=== PATIENT | male | born 1950 | race Caucasian/White ===

== ENCOUNTER 2016-10-07 19:50 | Inpatient (IN) | payer MEDICARE, OTHER ==
--- NOTE | ~2016-10-07 | HP ---
History And Physical [facility] [address] [place]. [address] NAME: LEXII CONTRERAS JR : 54 STATUS : ADM IN PAT#: [id number] AGE: 66 ADM/REG DATE : 10/07/16 MR#: [id number] REPORT SERV DATE: 10/08/16 DICTATED BY: MAYE SESAY DATE: 10/07/16 REPORT STATUS : Draft TRANSCRIBED BY: MODAlberto DATE: 10/07/16 DATE OF ADMISSION: 10/07/2016 POINT OF ENTRY: [facility] Emergency Department. PRIMARY CARE PHYSICIAN: Unknown at this time. PRIMARY UROLOGIST: Etta Borden M.D. CHIEF COMPLAINT: Ba catheter malfunction. HISTORY OF PRESENT ILLNESS: Mr. Contreras is a 66-year-old gentleman with history of organic brain injury who is a long-term resident of [place] as well as a history of chronic urinary retention, requiring long-term Ba catheter placement, who was brought to emergency department today by his caregivers for reports of suspicion of Ba catheter malfunction. His caregivers are at bedside, state that he had about 500 or 600 mL in his urine bag early this morning; however, when they showered him this evening his bag was empty and upon confirmation with other caregivers, it was noted that he had only drained approximately 100 mL during the day concerning for Ba catheter malfunction. Caregivers also state that he was not eating very well today which is also very unusual for him, but otherwise they deny any fevers, night sweats, chills, or any other obvious abnormality as patient is unable to provide any history. Initial evaluation in the emergency department for a white count that is within normal limits. His Ba catheter was changed out. It drained approximately 500 to 600 mL immediately. A very turbid-appearing urine with sediment. His urinalysis is positive for urinary tract infection. Other laboratory evaluation shows acute kidney injury with a creatinine of 1.6 as well as hyperkalemia with a potassium of 5.8. He was placed on IV fluids, antibiotics, and admitted to the Hospitalist Service. COMPREHENSIVE REVIEW OF SYSTEMS: Otherwise negative unless listed in history of present illness. PAST MEDICAL HISTORY: 1. Organic brain injury. 2. Atrial fibrillation, not on anticoagulation. 3. Hypertension. 4. Hypothyroidism. 5. Chronic urinary retention with chronic indwelling Ba catheter. 6. Recurrent urinary tract infection. 7. BPH. 8. History of chronic systolic congestive heart failure; however, last known ejection fraction was within normal limits. History And Physical [address] [address] NAME: LEXII CONTRERAS JR : 54 STATUS : ADM IN [facility]#: [id number] AGE: 66 ADM/REG DATE : 10/07/16 MR#: [id number] REPORT SERV DATE: 10/08/16 DICTATED BY: MAYE SESAY DATE: 10/07/16 REPORT STATUS : Draft TRANSCRIBED BY: PAOLA DATE: 10/07/16 SURGICAL HISTORY: Unknown. ALLERGIES: NO KNOWN DRUG ALLERGIES. HOME MEDICATIONS: 1. Abilify 5 mg at bedtime. 2. Vitamin C 500 mg daily. 3. Aspirin 81 mg daily. 4. Calcitonin 1 spray nasal daily. 5. Calcium vitamin D 600 mg b.i.d. 6. Calmoseptine topical ointment. 7. Sinemet 2 tabs t.i.d. 8. Cranberry extract 500 mg daily. 9. Vitamin B12 1000 mcg intramuscular monthly. 10.Digoxin 0.0625 mg daily. 11.Docusate 100 mg daily. 12.Finasteride 5 mg daily. 13.Folic acid 1000 mcg daily. 14.Lamictal 300 mg daily. 15.Lamictal 250 mg at bedtime. 16.Levothyroxine 50 mcg daily. 17.Metoprolol 6.25 mg b.i.d. 18.MiraLAX one packet daily. 19.Pravastatin 10 mg daily. 20.Hydrocerin lotion topical. 21.Metronidazole topical gel. 22.Selenium sulfide topical. SOCIAL HISTORY: No tobacco, alcohol, or illicits. Long-term resident of [facility]. Caregivers are at bedside. FAMILY HISTORY: Unknown. LABS AND IMAGIN. White count 8.9, hemoglobin 16.0, hematocrit 48.7, platelets a 147. 2. Sodium is 139, potassium 5.8, chloride 105, carbon dioxide 31, BUN 34, creatinine 1.59, glucose is 115, calcium is 9.4, protein 6.7, albumin is 3.8, bilirubin is 0.6, ALT is 8, AST 12, alkaline phosphatase is 74. 3. Urinalysis: Specific gravity is 1.019, turbid with trace ketones with large leukocyte esterase, positive nitrites with greater than 182 white blood cells per high field with 2 epithelial cells and many bacteria. 4. Chest x-ray per my review shows no acute cardiopulmonary abnormality. 5. EKG per my review, initially showed atrial fibrillation with RVR with heart rate of 110. On recheck, it is now in the 80s. No evidence of any acute ischemia or infarction or T-wave changes. PHYSICAL EXAMINATION: History And Physical [address] [place]. [address] NAME: LEXII CONTRERAS JR : 54 STATUS : ADM IN PAT#: [id number] AGE: 66 ADM/REG DATE : 10/07/16 MR#: [id number] REPORT SERV DATE: 10/08/16 DICTATED BY: MAYE SESAY DATE: 10/07/16 REPORT STATUS : Draft TRANSCRIBED BY: PAOLA DATE: 10/07/16 VITAL SIGNS: Temperature is 97.6 degrees Fahrenheit, pulse is 113, respirations 12, saturating 96% on room air, blood pressure 99/76. On recheck, temperature is now 98.1 degrees Fahrenheit, blood pressure 115/64, pulse of 85. GENERAL: Patient is awake, alert, in no acute distress. Caregivers are at bedside. HEENT: Atraumatic and normocephalic. Moist mucous membranes. Pupils are equal, round, reactive to light and accommodation. Extraocular movements intact. No scleral icterus. NECK: No jugular venous distention. No carotid bruits. CARDIAC: Irregularly irregular rate and rhythm. No murmurs, rubs, or gallops. Normal S1, S2. LUNGS: Clear to auscultation bilaterally. No wheezes, rhonchi, or rales. ABDOMEN: Soft, nontender, nondistended. Good bowel sounds. No rebound, guarding, or rigidity. EXTREMITIES: Warm and well-perfused. No cyanosis, clubbing, or edema. : Ba catheter is in place that is draining a turbid-appearing urine. SKIN: Warm and dry. PSYCH: Unable to assess. NEURO: Patient is awake and alert, will move all extremities well. Cranial nerves are grossly intact. Otherwise unremarkable neurologic exam. ASSESSMENT AND PLAN: Mr. Contreras is a 66-year-old gentleman with a chronic indwelling Ba catheter who is brought to the emergency department for Ba catheter malfunction, found to have evidence of urinary tract infection as well as acute kidney injury. PROBLEM LIST: 1. Ba catheter malfunction. 2. Acute kidney injury, likely obstructive uropathy. 3. Urinary tract infection. 4. Hyperkalemia. 5. History of atrial fibrillation. 6. Organic brain injury. PLAN: 1. Urinary tract infection. Follow up urine cultures. Patient has grown multitude of organisms in the past including MRSA, Proteus, Citrobacter, and Enterococcus faecalis. We will initially cover with vancomycin and cefepime and narrow once cultures result. 2. Acute kidney injury, obstructive uropathy. We will place patient on IV fluid hydration. Ab catheter has already been replaced and is now draining appropriately. Checking urine lytes as well as renal ultrasound. 3. Hyperkalemia. No evidence of EKG changes at this time. Continue cardiac telemetry monitoring. Continue IV fluid hydration. We will give calcium gluconate as well as one time dose of Kayexalate to bring it down. 4. Atrial fibrillation. Patient is currently well rate controlled. Continue the patient's home metoprolol and digoxin. He is not on anticoagulation. 5. Ba catheter malfunction. This has been addressed in the ER. Ba catheter has been changed out. 6. DVT prophylaxis, Lovenox subcutaneously. History And Physical [address] [address] NAME: LEXII CONTRERAS JR : 54 STATUS : ADM IN [facility]#: [id number] AGE: 66 ADM/REG DATE : 10/07/16 MR#: [id number] REPORT SERV DATE: 10/08/16 DICTATED BY: MAYE SESAY DATE: 10/07/16 REPORT STATUS : Draft TRANSCRIBED BY: MODL DATE: 10/07/16 CODE STATUS: Patient wishes to be full code. NIYA/ADOREL Maye Sesay MD / [id number] CC: Deny Leonard M.D.
--- NOTE | ~2016-10-07 | DS ---
Discharge Summary [facility] [address] [place]. [address] NAME: LEXII GALLEGOS JR : 54 STATUS : DIS IN PAT#: [id number] AGE: 66 ADM/REG DATE : 10/07/16 MR#: [id number] REPORT SERV DATE: 10/10/16 DICTATED BY: LASHONDA SANDOVAL DATE: 10/09/16 REPORT STATUS : Draft TRANSCRIBED BY: MODL DATE: 10/09/16 ADMISSION DATE: 10/07/2016 DISCHARGE DATE: 10/09/2016 DISCHARGE DIAGNOSES: 1. Acute kidney injury. 2. Hyperkalemia. 3. Obstructive chronic indwelling Ba catheter. 4. Chronic urinary retention. 5. Urinary colonization. 6. Lifelong mental retardation. 7. Transient metabolic encephalopathy. 8. Seizure disorder. 9. Chronic atrial fibrillation, not on anticoagulation. 10.Hypothyroidism. 11.Chronic macrocytosis. 12.Chronic thrombocytopenia. 13.History of colonic polyps. HISTORY: This patient reportedly was noticed early in life to have severe mental retardation. His sister, Renate, told me in phone conversation that it was confirmed by first or second grade. He has lived in a penitentiary since about age 23. Reportedly there is a couple other siblings who also have significant cognitive problems. The patient has been residing at [facility]. The staff at [facility] reportedly noticed he had decreased urine in his Ba catheter and that he had decreased appetite which is unusual for him and because of these abnormalities, sent him to the emergency room at [facility] where he was noted to have a potassium elevation of 5.8 and a serum creatinine of 1.59. His previous baseline was 1.2 to 1.3. He was referred to our team for inpatient care. His old Ba catheter was taken out. A new one was placed. He had good urinary output. He had one dose of Kayexalate 30 g p.o. and his potassium came down to 5.1 and 4.4. With fluids, his creatinine came down to 1.2. The patient is chronically on digoxin. His level was checked, it was 0.2. Renal ultrasound was performed showing early cortical atrophy and thickening. No significant obstruction. Chest x-ray in the emergency room showed low lung volumes related to his kyphosis and head tilted forward posture. Initially, he was placed on IV antibiotics, cefepime. His white count has not been elevated through this time here in the hospital. His procalcitonin was undetectable on two different occasions. The patient is growing a gram-negative bacilli, and his urine blood cultures were without growth. It is likely that this is a colonization rather than an active infection given the absence of fever and his rapid improvement with just changing the catheter. Antibiotics have been discontinued. He is eating well and the caregivers who know him from [facility] say he is back at his Discharge Summary [address] [address] NAME: LEXII GALLEGOS : 54 STATUS : DIS IN PAT#: [id number] AGE: 66 ADM/REG DATE : 10/07/16 MR#: [id number] REPORT SERV DATE: 10/10/16 DICTATED BY: LASHONDA SANDOVAL DATE: 10/09/16 REPORT STATUS : Draft TRANSCRIBED BY: PAOLA DATE: 10/09/16 usual baseline both on 10/08 and 10/09/2016. We are releasing him to go back to [facility]. DISCHARGE MEDICATIONS: Abilify 5 mg at bedtime; vitamin C 500 mg daily; aspirin 81 mg daily; Miacalcin nasal spray alternating nostrils daily; Sinemet 25/100 he takes at 7 a.m., 11 a.m., and 4 p.m.; vitamin B12 of 1000 mcg IM every 30 days, he usually gets his on the ; Caltrate 600 mg b.i.d.; digoxin half of a 0.125 mg tablet every day; Colace 100 mg at bedtime; Proscar 5 mg daily; folic acid he takes daily; Lamictal 300 mg in the morning and 250 mg in the evening; Synthroid 50 mcg daily (his TSH was normal at 3.66); metoprolol 6.25 mg b.i.d., hold if systolic less than 105 or heart rate less than 60; MiraLAX 1 packet daily p.r.n. constipation; Pravachol 10 mg every evening; Tylenol 650 q.6 hours p.r.n. pain or fever; cranberry extract daily; he uses some topical lotion as well as prescription metronidazole gel to his eyebrows every evening and selenium sulfide shampoo Sunday, Sunday, Sunday, and Sunday; and Calmoseptine ointment to his buttocks t.i.d. p.r.n. need for skin barrier. He is to resume his mechanical soft diet, chopped meats with gravy, thin liquids. I spent 37 minutes today with the patient and with discharge plans. DICTATED BY: Deny Leonard/PAOLA Lashonda Sandoval M.D. / [id number] CC: Deny Leonard M.D. Alan Shikoh, M.D. MELI THAKUR
[~2016-10-07 19:50] MED LIST: ABILIFY; ABILIFY10 PO; ABILIFY15 PO; ABILIFY5 PO; ASAB PO; ASAEC PO; ASPIRIN; BAZA TOP; CALMOSEPTINE O2.5 OZ TOP; CALMOSEPTINE T; CALTRA600D PO; CARD120 PO; CEFT5 PO; CIP5 PO; CITRACAL PO; COLACE; COREG3 PO; COZ25 PO; CRANBERRY500 MG PO; CUTIVATE0.05 % TOP; DESONIDE0.05 % EX; DIGITEK0.125 MG PO; DOXYCYCLINE; DSS PO; ELIMITE CREAM 560 GM TOP; ENSURE PLUS PO; EXTINA2 % TOP; FLUOCINONIDE0.05 % T; FOLIC ACID; FOLIC PO; FOSAMAX; FOSAMAX35 MG PO; HALF81 PO; JOHNSON'S BABY OIL OT; KURIC2 % TOP; LAMICTAL; LAMICTAL10 PO; LAMICTAL150 MG PO; LEVAQUIN5T PO; LEVAQUIN750 MG PO; LEVOTHYROXIN50 MCG PO; LOP25 PO; LOTRIMIN AF21 EX; LOTRIMIN AF21 T; LOTRIMIN AF21 TOP; LUBRIDERM LOTION4 O2 EX; MAGNESIUM CITRATE PO; METROGEL1 % TOP; MIRALAX; MIRALAXPKT PO; OS500+D PO; PRAV10 PO; PROSCAR5 PO; PROTONIX PO; SELENIUM SULFIDE; SELENIUM SULFIDE EX; SELENIUM SULFIDE T; SELSUN BLUE3 % TOP; SIN25 PO; SYN.025B PO; SYN.05 PO; VERAPAMIL; VIB100 PO; VITC500 PO; [UNRECOGNIZED DRUG - OTHER]; [UNRECOGNIZED DRUG - OTHER]; [UNRECOGNIZED DRUG - OTHER] OT; [UNRECOGNIZED DRUG - OTHER] TOP; [UNRECOGNIZED DRUG - OTHER] TOP
[2016-10-07] MEDS ORDERED: LOP25 PO (21:30)
[2016-10-07] MEDS ORDERED: CRANBERRY500 MG PO (21:31)
[2016-10-07] MEDS ORDERED: B121000P IM (21:32)
[2016-10-07] MEDS ORDERED: CALTRA600D PO (21:34)
[2016-10-07] MEDS ORDERED: VITC500 PO (21:35)
[2016-10-07] MEDS ORDERED: DSS PO (21:36)
[2016-10-07] MEDS ORDERED: HYDROCERIN (21:37)
[2016-10-07] MEDS ORDERED: SYN.05 PO (21:38)
[2016-10-07] MEDS ORDERED: FOLIC PO (21:38)
[2016-10-07] MEDS ORDERED: METRONIDAZOLE GEL (21:40)
[2016-10-07] MEDS ORDERED: PRAV10 PO (21:41)
[2016-10-07] MEDS ORDERED: MIRALAX POWDER1 PKT PO (21:41)
[2016-10-07] MEDS ORDERED: SELENIUM SULFIDE 2.5 (21:42)
[2016-10-07] MEDS ORDERED: SIN25 PO (21:44)
[2016-10-07] MEDS ORDERED: LAMICTAL10 PO ×2 (21:44→21:45)
[2016-10-07] MEDS ORDERED: HALF81 PO (21:45)
[2016-10-07] MEDS ORDERED: MIACALCIN NAS (21:46)
[2016-10-07] MEDS ORDERED: PROSCAR5 PO (21:47)
[2016-10-07] MEDS ORDERED: LAN125 PO (21:47)
[2016-10-07] MEDS ORDERED: ABILIFY5 PO (21:48)
[2016-10-07] MEDS ORDERED: CALMOSEPTINE O2.5 OZ TOP (21:50)
[2016-10-07 21:56] LABS: BASOPHILS 0.1 %; BASOPHILS ABSOLUTE 0.01 10/3/uL (0.0-0.16); EOSINOPHILS 0.2 %; EOSINOPHILS ABSOLUTE 0.02 10/3/uL (0.0-0.53); IMMATURE GRANULOCYTES 0.3 %; IMMATURE GRANULOCYTES ABSOLUTE 0.03 10/3/uL (0.0-0.11); LYMPHOCYTES 7.7 %; LYMPHOCYTES ABSOLUTE 0.69 10/3/uL (0.67-4.30); MEAN CORPUS HGB CONC 33.3 g/dL (32.0-36.0); MEAN CORPUSCULAR HEMOGLOB 33.7 pg (26.0-34.0); MEAN PLATELET VOLUME 11.1 fL (9.2-13.0); MONOCYTES 7.9 %; NEUTROPHILS 83.8 %; NEUTROPHILS ABSOLUTE 7.46 10/3/uL (2.02-8.40); RBC DISTRIBUTION WIDTH 13.8 % (12.0-16.0)
[2016-10-07 21:58] LABS: ER CBC TAT 0 Hrs 07 Mins; HEMATOCRIT 48.1 % (40.0-51.0); MANUAL DIFF NO %; MEAN CORPUSCULAR VOLUME 101.3 fL (80-100); PLATELET COUNT 147 10/3/uL (150-400); RED CELL COUNT 4.75 10/6/uL (4.7-6.1); WHITE BLOOD CELLS 8.9 10/3/uL (4.5-10.5)
[2016-10-07 22:10] LABS: CALCIUM, SERUM 9.4 MG/DL (8.5-10.4); CHLORIDE, SERUM 105 MMOL/L (96-112); CO2 (CARBON DIOXIDE) 31 MMOL/L (24-34); SGOT(AST) 12 U/L (5-40); SGPT(ALT) 8 U/L (5-65); SODIUM, SERUM 139 MMOL/L (135-148); TOTAL BILIRUBIN 0.6 MG/DL (0-1.2)
[2016-10-07 22:12] LABS: BUN (BLOOD UREA NITROGEN) 34 MG/DL (6-23); CREATININE 1.59 MG/DL (0.70-1.30); GFR AFRICAN AMERICAN 52 ML/MIN (>=60); GFR NON AFRICAN AMERICAN 45 ML/MIN (>=60); GLUCOSE, SERUM 115 MG/DL (60-99); POTASSIUM, SERUM 5.8 MMOL/L (3.5-5.3)
[2016-10-07 22:13] LABS: A/G RATIO 1.3 (0.7-1.9); ALBUMIN 3.8 G/DL (3.5-5.0); ALKALINE PHOSPHATASE 74 U/L (45-117); GLOBULIN 2.9 G/DL (2.5-4.1); TOTAL PROTEIN 6.7 G/DL (6.0-8.5)
[2016-10-07 22:17] LABS: ASCORBIC ACID (UR NOT ORDER) 40 (NEG); BILIRUBIN, URINE NEGATIVE (NEG); ER URINALYSIS TAT 0 Hrs 26 Mins; KETONE, URINE TRACE MG/DL (NEG); LEUKOCYTE ESTERASE(NOT OR LARGE (NEG); NITRITE (URINE) POS (NEG)
[2016-10-07 22:18] LABS: WBC (NOT ORDERED) (RFLEX) > 182 (0-5)
[2016-10-07 22:27] LABS: PROCALCITONIN <0.05 ng/mL (<0.5)
[2016-10-08 00:11] LABS: TROPONIN I 0.03 NG/ML (<0.05)
[2016-10-08 00:28] LABS: PROCALCITONIN <0.05 ng/mL (<0.5)
[2016-10-08 05:55] LABS: BASOPHILS 0.2 %; BASOPHILS ABSOLUTE 0.01 10/3/uL (0.0-0.16); EOSINOPHILS 0.4 %; EOSINOPHILS ABSOLUTE 0.02 10/3/uL (0.0-0.53); HEMOGLOBIN 14.2 g/dL (13.6-17.8); IMMATURE GRANULOCYTES 0.2 %; IMMATURE GRANULOCYTES ABSOLUTE 0.01 10/3/uL (0.0-0.11); LYMPHOCYTES 12.7 %; LYMPHOCYTES ABSOLUTE 0.68 10/3/uL (0.67-4.30); MEAN CORPUS HGB CONC 33.2 g/dL (32.0-36.0); MEAN CORPUSCULAR HEMOGLOB 33.3 pg (26.0-34.0); MEAN CORPUSCULAR VOLUME 100.2 fL (80-100); MEAN PLATELET VOLUME 11.3 fL (9.2-13.0); MONOCYTES 10.3 %; MONOCYTES ABSOLUTE 0.55 10/3/uL (0.21-1.20); NEUTROPHILS 76.2 %; NEUTROPHILS ABSOLUTE 4.09 10/3/uL (2.02-8.40); PLATELET COUNT 114 10/3/uL (150-400); RBC DISTRIBUTION WIDTH 13.8 % (12.0-16.0); RED CELL COUNT 4.27 10/6/uL (4.7-6.1); WHITE BLOOD CELLS 5.4 10/3/uL (4.5-10.5)
[2016-10-08 05:58] LABS: HEMATOCRIT 42.8 % (40.0-51.0); MANUAL DIFF NO %
[2016-10-08 06:22] LABS: ALBUMIN 3.3 G/DL (3.5-5.0); CALCIUM, SERUM 9.1 MG/DL (8.5-10.4); CHLORIDE, SERUM 108 MMOL/L (96-112); CREATININE 1.19 MG/DL (0.70-1.30); GFR AFRICAN AMERICAN 74 ML/MIN (>=60); GFR NON AFRICAN AMERICAN 64 ML/MIN (>=60); POTASSIUM, SERUM 4.4 MMOL/L (3.5-5.3); SODIUM, SERUM 139 MMOL/L (135-148)
[2016-10-08 06:23] LABS: BUN (BLOOD UREA NITROGEN) 27 MG/DL (6-23); CO2 (CARBON DIOXIDE) 25 MMOL/L (24-34); DIGOXIN 0.2 NG/ML (0.8-2.0); GLUCOSE, SERUM 87 MG/DL (60-99); PHOSPHORUS, SERUM 2.3 MG/DL (2.5-4.5)
[2016-10-09 05:15] LABS: BASOPHILS 0.7 %; BASOPHILS ABSOLUTE 0.02 10/3/uL (0.0-0.16); EOSINOPHILS 1.3 %; EOSINOPHILS ABSOLUTE 0.04 10/3/uL (0.0-0.53); HEMATOCRIT 41.5 % (40.0-51.0); HEMOGLOBIN 13.7 g/dL (13.6-17.8); IMMATURE GRANULOCYTES 0.3 %; IMMATURE GRANULOCYTES ABSOLUTE 0.01 10/3/uL (0.0-0.11); LYMPHOCYTES 17.4 %; LYMPHOCYTES ABSOLUTE 0.52 10/3/uL (0.67-4.30); MEAN CORPUSCULAR HEMOGLOB 33.4 pg (26.0-34.0); MEAN CORPUSCULAR VOLUME 101.2 fL (80-100); MEAN PLATELET VOLUME 10.8 fL (9.2-13.0); MONOCYTES ABSOLUTE 0.27 10/3/uL (0.21-1.20); NEUTROPHILS 71.3 %; NEUTROPHILS ABSOLUTE 2.13 10/3/uL (2.02-8.40); PLATELET COUNT 104 10/3/uL (150-400); RBC DISTRIBUTION WIDTH 13.6 % (12.0-16.0)
[2016-10-09 05:34] LABS: BUN (BLOOD UREA NITROGEN) 25 MG/DL (6-23); CALCIUM, SERUM 9.2 MG/DL (8.5-10.4); CHLORIDE, SERUM 106 MMOL/L (96-112); CO2 (CARBON DIOXIDE) 28 MMOL/L (24-34); CREATININE 1.23 MG/DL (0.70-1.30); GFR AFRICAN AMERICAN 71 ML/MIN (>=60); GFR NON AFRICAN AMERICAN 62 ML/MIN (>=60); POTASSIUM, SERUM 4.5 MMOL/L (3.5-5.3); SODIUM, SERUM 138 MMOL/L (135-148)
[2016-10-09 05:36] LABS: GLUCOSE, SERUM 69 MG/DL (60-99)
[2016-10-09 05:43] LABS: MANUAL DIFF NO %
[2016-10-09] MEDS ORDERED: T PO (13:42)
== END 2016-10-09 15:49 | disposition home or self-care (01) | DRG 698 ==
LOC: ER 19:50 → 6NO 23:31
PROVIDERS: Hospitalist; Internal Medicine; Nurse Practitioner Acute Care
DX: T83.098A Other mechanical complication of other urinary catheter, initial encounter (principal); G93.41 Metabolic encephalopathy; N17.9 Acute kidney failure, unspecified; I50.22 Chronic systolic (congestive) heart failure; D69.6 Thrombocytopenia, unspecified; F72 Severe intellectual disabilities; E87.5 Hyperkalemia; I48.2 Chronic atrial fibrillation; G40.909 Epilepsy, unspecified, not intractable, without status epilepticus; N40.1 Benign prostatic hyperplasia with lower urinary tract symptoms; R33.8 Other retention of urine; N13.9 Obstructive and reflux uropathy, unspecified; D75.89 Other specified diseases of blood and blood-forming organs; E03.9 Hypothyroidism, unspecified; M40.209 Unspecified kyphosis, site unspecified; Z86.010 Personal history of colon polyps; Z22.39 Carrier of other specified bacterial diseases; Z87.440 Personal history of urinary (tract) infections; Z86.14 Personal history of Methicillin resistant Staphylococcus aureus infection
CPT/HCPCS: 71010; 76775; 80048; 80053; 80069; 80162; 81001; 82570; 83605; 83935; 84132; 84145; 84300; 84439; 84443; 84484; 85025; 87040; 87077; 87086; 87186; 93005; 99285; A9270-GY; J0610; J0692; J3370